=== PATIENT | female | born 1980 | race Asian ===

== ENCOUNTER 2020-04-21 08:32 | Outpatient (CLI) | payer OTHER | END 2020-04-21 08:42 | disposition home or self-care (01) | LOC: MAMO-SONO 08:32 | PROVIDERS: ATTEND Obstetrics & Gynecology | DX: Z12.31 Encounter for screening mammogram for malignant neoplasm of breast (principal); N60.01 Solitary cyst of right breast; N60.02 Solitary cyst of left breast; D26.1 Other benign neoplasm of corpus uteri ==

== ENCOUNTER → 2020-04-21 09:27 | Outpatient (CLI) | payer OTHER | END | disposition home or self-care (01) | LOC: LAB 09:27 | PROVIDERS: ATTEND Obstetrics & Gynecology | DX: E03.8 Other specified hypothyroidism (principal); Z13.0 Encounter for screening for diseases of the blood and blood-forming organs and certain disorders involving the immune mechanism; E78.00 Pure hypercholesterolemia, unspecified; E55.9 Vitamin D deficiency, unspecified; N39.0 Urinary tract infection, site not specified ==

== ENCOUNTER 2021-04-28 08:01 | Outpatient (CLI) | payer OTHER | END 2021-04-28 08:07 | disposition home or self-care (01) | LOC: MAMO-SONO 08:01 → SONOGRAMA 08:15 → MAMO-SONO 08:45 | PROVIDERS: ATTEND Obstetrics & Gynecology | DX: N60.01 Solitary cyst of right breast (principal); N60.02 Solitary cyst of left breast; Z12.31 Encounter for screening mammogram for malignant neoplasm of breast; R10.2 Pelvic and perineal pain ==

== ENCOUNTER 2021-04-28 08:01 | Outpatient (CLI) | payer OTHER | END 2021-04-28 08:02 | disposition home or self-care (01) | LOC: LAB 08:01 | PROVIDERS: ATTEND Obstetrics & Gynecology | DX: N39.0 Urinary tract infection, site not specified (principal); E55.9 Vitamin D deficiency, unspecified; Z13.0 Encounter for screening for diseases of the blood and blood-forming organs and certain disorders involving the immune mechanism; E78.00 Pure hypercholesterolemia, unspecified; E03.8 Other specified hypothyroidism ==

== ENCOUNTER → 2023-09-06 08:54 | Outpatient (CLI) | payer OTHER ==
[2023-09-07 08:40] LABS: ob NEGATIVE (NEGATIVE)
== END | disposition home or self-care (01) ==
LOC: LAB 08:33
PROVIDERS: ATTEND General Practice
DX: A64 Unspecified sexually transmitted disease (principal); Z12.11 Encounter for screening for malignant neoplasm of colon

== ENCOUNTER 2023-09-06 09:40 | Outpatient (CLI) | payer OTHER | END 2023-09-06 09:45 | disposition home or self-care (01) | LOC: RAD 09:40 | PROVIDERS: ATTEND General Practice | DX: N64.4 Mastodynia (principal); R10.11 Right upper quadrant pain; R06.00 Dyspnea, unspecified; R10.2 Pelvic and perineal pain ==